=== PATIENT | male | born 1965 | race Caucasian/White ===

== ENCOUNTER 2018-03-24 13:56 | Inpatient (IN) | payer OTHER ==
[~2018-03-24] VITALS: Ht 185.4 cm; Wt 88.0 kg
[2018-03-24] MEDS ORDERED: SODIUM CHLORIDE FLUSH 10ML SYR IVF ONE (14:30)
[2018-03-24 14:48] LABS: BASOPHILS # (AUTO) 0.02 x10^3/uL (0-0.1); BASOPHILS % (AUTO) 0 % (0-1); EOSINOPHILS # (AUTO) 0.02 x10^3/uL (0-0.4); EOSINOPHILS % (AUTO) 0 % (1-7); LYMPHOCYTES # (AUTO) 1.59 x10^3/uL (1-3.4); LYMPHOCYTES % (AUTO) 14 % (22-44); MD NO; MEAN CORPUSCULAR HEMOGLOBIN 30.5 pg (27.5-34.5); MEAN CORPUSCULAR HGB CONC 34.2 g/dL (33.2-36.2); MEAN CORPUSCULAR VOLUME 89.2 fL (81-97); MEAN PLATELET VOLUME 7.4 fL (7.4-10.4); MONOCYTES # (AUTO) 1.42 x10^3/uL (0.2-0.8); MONOCYTES % (AUTO) 13 % (2-9); NEUTROPHILS # (AUTO) 8.03 x10^3/uL (1.8-6.8); NEUTROPHILS % (AUTO) 73 % (42-75); PLATELET COUNT 359 x10^3/uL (130-400); RED BLOOD COUNT 4.93 x10^6/uL (4.38-5.82); RED CELL DISTRIBUTION WIDTH 12.6 % (9.4-14.8)
[2018-03-24] MEDS ORDERED: OXYC-307 PO (14:50)
[2018-03-24 14:59] LABS: ALANINE AMINOTRANSFERASE 121 U/L (12-78); ALBUMIN 3.6 g/dL (3.4-5.0); ANION GAP 8 mmol/L (5-15); CALCIUM 9.5 mg/dL (8.5-10.1); CHLORIDE 103 mmol/L (98-107); CREATININE 0.98 mg/dL (0.7-1.3)
[2018-03-24 15:03] LABS: ALKALINE PHOSPHATASE 156 U/L (45-117); BILIRUBIN,TOTAL 0.5 mg/dL (0.2-1.0); TOTAL PROTEIN 8.5 g/dL (6.4-8.2); TROPONIN I < 0.015 ng/mL (0.000-0.045)
[2018-03-24] MEDS ORDERED: OMNIPAQUE 350 MG/ML, 100ML BOTTLE ONE (15:38)
[2018-03-24] MEDS ORDERED: KETOROLAC 30 MG/1 ML ONE (16:08)
[2018-03-24] MEDS ORDERED: ENOXAPARIN 100 MG/ML ONE (16:09)
[2018-03-24] MEDS ORDERED: ENOXAPARIN 80 MG/0.8 ML ONE (16:16)
[2018-03-24] MEDS ORDERED: ENOXAPARIN 80 MG/0.8 ML SQ SCH (16:30)
[2018-03-24] MEDS ORDERED: ENOXAPARIN 30 MG/0.3 ML SQ SCH (16:30)
[2018-03-24] MEDS ORDERED: ENOXAPARIN 80 MG/0.8 ML SQ ONE (16:30)
[2018-03-24] MEDS ORDERED: KETOROLAC 30 MG/1 ML IVPush ONE (16:30)
[2018-03-24] MEDS ORDERED: KETOROLAC 30 MG/1 ML IV PRN (17:00)
[2018-03-24] MEDS ORDERED: ONDANSETRON 2MG/ML, 2ML IVPush PRN (17:00)
[2018-03-24] MEDS ORDERED: METHOCARBAMOL 500 MG TABLET PO PRN (17:00)
[2018-03-24 18:08] VITALS: BP 129/83
[2018-03-24 19:51] VITALS: BP 103/69
[2018-03-24] MEDS: morphine SULFATE 10 MG/ML, 1ML IVPush PRN (21:01)
[2018-03-24] MEDS: OXYcodone IR 5MG TABLET PO PRN (23:04)
[2018-03-25] MEDS: morphine SULFATE 10 MG/ML, 1ML IVPush PRN ×2 (00:07→08:08)
[2018-03-25 00:47] VITALS: BP 139/81
[2018-03-25] MEDS ORDERED: ENOXAPARIN 30 MG/0.3 ML SQ SCH (04:30)
[2018-03-25] MEDS ORDERED: ENOXAPARIN 100 MG/ML SQ SCH ×2 (04:30→16:30)
[2018-03-25 07:30] VITALS: BP 131/79
[2018-03-25] MEDS ORDERED: PANTOPROZOLE 40MG TABLET PO SCH (07:30)
[2018-03-25] MEDS ORDERED: HYDR-3307 PO (10:10)
[2018-03-25] MEDS ORDERED: OXYC-307 PO (10:11)
[2018-03-25] MEDS ORDERED: BACL-19 PO (10:12)
[2018-03-25] MEDS ORDERED: ENOXAPARIN 100 MG/ML ONE (10:36)
[2018-03-25] MEDS ORDERED: KETOROLAC 30 MG/1 ML IV SCH (11:00)
[2018-03-25 12:55] VITALS: BP 120/76
[2018-03-25] MEDS ORDERED: RIVA20TA PO (14:33)
[2018-03-25] MEDS ORDERED: RIVA1TAB PO (14:33)
[2018-03-25] MEDS ORDERED: RIVAROXABAN 15 MG TABLET PO SCH (16:00)
[2018-03-25] MEDS ORDERED: RIVAROXABAN 15 MG TABLET ONE (16:07)
[2018-03-25] MEDS: OXYcodone IR 5MG TABLET PO PRN (16:16)
== END 2018-03-25 16:45 | disposition home or self-care (01) | DRG 299 ==
LOC: SUATTDRO 15:52 → ED 16:34 → EDIP 16:35 → ED 16:45 → 4WST 17:59
PROVIDERS: ADMIT Internal Medicine; ATTEND Internal Medicine
DX: I82.411 Acute embolism and thrombosis of right femoral vein (principal); I26.99 Other pulmonary embolism without acute cor pulmonale; J90 Pleural effusion, not elsewhere classified; Z53.20 Procedure and treatment not carried out because of patient's decision for unspecified reasons; G89.29 Other chronic pain; M54.9 Dorsalgia, unspecified; R07.81 Pleurodynia; Z86.711 Personal history of pulmonary embolism; Z80.9 Family history of malignant neoplasm, unspecified
CPT/HCPCS: 36415; 71045; 71275; 76700; 80053; 81240; 81241; 83690; 84484; 85025; 85300; 85301; 85303; 85306; 85598; 85610; 85613; 85670; 85730; 85732; 86146; 86147; 93005; 93306; 93970; 96372; 96374; 99285; G0378; J1650; J1885; Q9967; J2270